=== PATIENT | male | born 1980 | race Caucasian/White ===

== ENCOUNTER 2017-09-27 01:14 | Observation (INO) | payer OTHER ==
[~2017-09-27] VITALS: Ht 175.3 cm; Wt 108.0 kg
[2017-09-27] VITALS (10 sets, daily range): BP systolic 116–171; BP diastolic 68–100; PULSE 60–104; RESP 16–20; TEMP 96.9–98.6; O2SAT 94–97
[~2017-09-27 01:14] MED LIST: OMEP20CA5 PO; Z.0.NO CURRENT MEDS
[2017-09-27] MEDS ORDERED: SODIUM CHLOR 0.9% 1000 ML INJ 1,000 ML IV SCH (01:40)
[2017-09-27] MEDS ORDERED: SODIUM CHLORIDE 0.9% FLUSH 10 ML FLUSH IV FLUSH PRN ×2 (01:45→03:30)
--- NOTE | 2017-09-27 01:49 | PD ---
HPI Chief Complaint: Cardiac Complaint Time Seen by Provider: 01:39 Travel History International Travel<30 days: No Contact w/Intl Traveler<30days: No Traveled to known affect area: No History of Present Illness HPI 37-year-old male arrives to the ER by private vehicle. He felt a sudden onset of a racing heart with palpitations while he was watching TV about an hour prior to ER arrival. The patient sit up and called EMS. He took 2 Tylenol. He walked around and his symptoms resolved. He called EMS and was driven here by family members. He describes minimal lightheadedness en route. A similar episode occurred last week and was evaluated at a hospital in [place]. The workup is essentially unremarkable. The patient is on the records here. Today was fairly inactive day for the patient. The family history coronary artery disease. The patient has a past medical history he is aware. He denies drugs alcohol tobacco. His caffeine intake. 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.) Social History Alcohol Use: No Tobacco Use: No Substance Use: No Allergies-Medications (Allergen,Severity, Reaction): Coded Allergies: No Known Allergies (Verified Adverse Reaction, Unknown, 09/27/17) Reported Meds & Prescriptions Reported Meds & Active Scripts Active Prilosec (Omeprazole) 20 Mg Capcr 20 Mg PO HS Reported No Current Meds (Miscellaneous Medication) Misc Review of Systems Except as stated in HPI: all other systems reviewed are Neg General / Constitutional: No: Fever Physical Exam Narrative GENERAL: 37-year-old male pleasant well-nourished well-developed no acute distress Vital Signs Date Time Temp Pulse Resp B/P (MAP) Pulse Ox O2 Delivery O2 Flow Rate FiO2 09/27/17 01:43 18 97 Room Air 09/27/17 01:42 16 97 Room Air 09/27/17 01:22 98.6 104 18 171/100 (123) 97 SKIN: Warm and dry. HEAD: Atraumatic. Normocephalic. EYES: Pupils equal and round. No scleral icterus. No injection or drainage. ENT: No nasal bleeding or discharge. Mucous membranes pink and moist. NECK: Trachea midline. No JVD. CARDIOVASCULAR: Tachycardia. Regular rhythm. RESPIRATORY: No accessory muscle use. Clear to auscultation. Breath sounds equal bilaterally. GASTROINTESTINAL: Abdomen soft, non-tender, nondistended. Hepatic and splenic margins not palpable. MUSCULOSKELETAL: Extremities without clubbing, cyanosis, or edema. No obvious deformities. NEUROLOGICAL: Awake and alert. No obvious cranial nerve deficits. Motor grossly within normal limits. Five out of 5 muscle strength in the arms and legs. Normal speech. PSYCHIATRIC: Appropriate mood and affect; insight and judgment normal. Data Data Last Documented VS Vital Signs Date Time Temp Pulse Resp B/P (MAP) Pulse Ox O2 Delivery O2 Flow Rate FiO2 09/27/17 01:43 18 97 Room Air 09/27/17 01:22 98.6 104 171/100 (123) Orders Orders Electrocardiogram (09/27/17 01:40) Complete Blood Count With Diff (09/27/17 01:40) Comprehensive Metabolic Panel (09/27/17 01:40) Creatine Kinase (Cpk) (09/27/17 01:40) Troponin I (09/27/17 01:40) Thyroid Stimulating Hormone (09/27/17 01:40) Chest, Single Ap (09/27/17 01:40) Blood Glucose (09/27/17 01:40) Ecg Monitoring (09/27/17 01:40) Iv Access Insert/Monitor (09/27/17 01:40) Oximetry (09/27/17 01:40) Sodium Chloride 0.9% Flush (Ns Flush) (09/27/17 01:45) Sodium Chlor 0.9% 1000 Ml Inj (Ns 1000 M (09/27/17 01:40) Drug Screen, Random Urine (09/27/17 01:40) Alcohol (Ethanol) (09/27/17 01:40) D-Dimer (09/27/17 01:46) Admit Order (Ed Use Only) (09/27/17 ) Beer Runner / Telemetry [id number] (09/27/17 02:54) Vital Signs (Adult) Q4H (09/27/17 02:54) Diet Npo (09/27/17 Breakfast) Activity Bed Rest (09/27/17 02:54) Notify Dr: Other (09/27/17 02:54) Labs Laboratory Tests Test 09/27/17 01:50 09/27/17 02:15 White Blood Count 6.1 TH/MM3 Red Blood Count 5.25 MIL/MM3 Hemoglobin 15.5 GM/DL Hematocrit 47.0 % Mean Corpuscular Volume 89.5 FL Mean Corpuscular Hemoglobin 29.5 PG Mean Corpuscular Hemoglobin Concent 33.0 % Red Cell Distribution Width 12.4 % Platelet Count 252 TH/MM3 Mean Platelet Volume 8.5 FL Neutrophils (%) (Auto) 42.2 % Lymphocytes (%) (Auto) 43.0 % Monocytes (%) (Auto) 7.5 % Eosinophils (%) (Auto) 5.0 % Basophils (%) (Auto) 2.3 % Neutrophils # (Auto) 2.6 TH/MM3 Lymphocytes # (Auto) 2.6 TH/MM3 Monocytes # (Auto) 0.5 TH/MM3 Eosinophils # (Auto) 0.3 TH/MM3 Basophils # (Auto) 0.1 TH/MM3 CBC Comment DIFF FINAL Differential Comment D-Dimer Quantitative (PE/DVT) 0.43 MG/L FEU Blood Urea Nitrogen 15 MG/DL Creatinine 1.20 MG/DL Random Glucose 137 MG/DL Total Protein 7.6 GM/DL Albumin 4.1 GM/DL Calcium Level 8.6 MG/DL Alkaline Phosphatase 75 U/L Aspartate Amino Transf (AST/SGOT) 18 U/L Alanine Aminotransferase (ALT/SGPT) 30 U/L Total Bilirubin 0.3 MG/DL Sodium Level 140 MEQ/L Potassium Level 3.4 MEQ/L Chloride Level 104 MEQ/L Carbon Dioxide Level 27.0 MEQ/L Anion Gap 9 MEQ/L Estimat Glomerular Filtration Rate 69 ML/MIN Total Creatine Kinase 130 U/L Troponin I LESS THAN 0.02 NG/ML Thyroid Stimulating Hormone 3rd Gen 4.930 uIU/ML Ethyl Alcohol Level LESS THAN 3 MG/DL Urine Opiates Screen NEG Urine Barbiturates Screen NEG Urine Amphetamines Screen NEG Urine Benzodiazepines Screen NEG Urine Cocaine Screen NEG Urine Cannabinoids Screen NEG MDM Medical Decision Making Medical Screen Exam Complete: Yes Emergency Medical Condition: Yes Medical Record Reviewed: Yes Differential Diagnosis NSTEMI, unstable angina, coronary vasospasm, PE, PTX, aortic dissection, pericarditis, myocarditis, endocarditis, PNA, esophageal disease, aneurysm, musculoskeletal etiologies, anxiety, cocaine/sympathomimetic abuse Narrative Course CBC & BMP Diagram 09/27/17 01:50 Total Protein 7.6, Albumin 4.1, Calcium Level 8.6, Alkaline Phosphatase 75, Aspartate Amino Transf (AST/SGOT) 18, Alanine Aminotransferase (ALT/SGPT) 30, Total Bilirubin 0.3 Last Impressions Chest X-Ray 09/27/17 0140 Signed Impressions: Service Date/Time: Wednesday, September 27, 2017 01:42 - CONCLUSION: No acute cardiopulmonary disease demonstrated. Dmitri Adam MD EKG shows a sinus rhythm, rate 80, with a rate of no preexcitation or ischemic injury pattern noted Patient is a reasonable candidate for the low-risk chest pain center. d/w Dr Gilliland for [facility] Visits and the patient may have had SVT, among other possibilities, however acute coronary syndrome is not definitively excluded. Diagnosis Primary Impression: Chest pain Qualified Codes: R07.9 - Chest pain, unspecified Additional Impression: Palpitations Admitting Information Admitting Physician Requests: Observation Celestino Farrell MD Sep 27, 2017 01:49
--- NOTE | 2017-09-27 01:55 | RADRPT ---
EXAM DATE/TIME: 09/27/2017 01:42 [place] COMPARISON: No previous studies available for comparison. INDICATIONS : Chest pain with nausea. MEDICAL HISTORY : None. SURGICAL HISTORY : None. ENCOUNTER: Initial ACUITY: 1 day PAIN SCORE: 8/10 LOCATION: Bilateral upper chest FINDINGS: A single view of the chest demonstrates the lungs to be symmetrically aerated without evidence of mas s, infiltrate or effusion. The cardiomediastinal contours are unremarkable. Osseous structures are intact. CONCLUSION: No acute cardiopulmonary disease demonstrated. Dmitri Adam MD on September 27, 2017 at 1:53 Board Certified Radiologist. This report was verified electronically.
[2017-09-27 01:58] LABS: AUTOMATED NEUTROPHIL # 2.6 TH/MM3 (1.8-7.7); BASOPHIL # 0.1 TH/MM3 (0-0.2); BASOPHIL % 2.3 % (0.0-2.0); EOSINOPHIL # 0.3 TH/MM3 (0-0.4); HEMOGLOBIN 15.5 GM/DL (13.0-17.0); LYMPHOCYTE # 2.6 TH/MM3 (1.0-4.8); MEAN CELL VOLUME 89.5 FL (80.0-100.0); MEAN CORPUSCULAR HEMOGLOBIN 29.5 PG (27.0-34.0); MEAN PLATELET VOLUME 8.5 FL (7.0-11.0); MONO % 7.5 % (0.0-8.0); MONOCYTE # 0.5 TH/MM3 (0-0.9); NEUT % 42.2 % (16.0-70.0); PLATELET COUNT 252 TH/MM3 (150-450); RED BLOOD COUNT 5.25 MIL/MM3 (4.50-5.90); RED CELL DISTRIBUTION WIDTH 12.4 % (11.6-17.2); WHITE BLOOD COUNT 6.1 TH/MM3 (4.0-11.0)
[2017-09-27 02:17] LABS: CHLORIDE 104 MEQ/L (98-107); SODIUM (NA) 140 MEQ/L (136-145)
[2017-09-27 02:20] LABS: ALBUMIN 4.1 GM/DL (3.4-5.0); CALCIUM 8.6 MG/DL (8.5-10.1)
[2017-09-27 02:21] LABS: BLOOD UREA NITROGEN 15 MG/DL (7-18); GLUCOSE,RANDOM 137 MG/DL (74-106)
[2017-09-27 02:23] LABS: ALT (GPT) 30 U/L (12-78); AST (GOT) 18 U/L (15-37); GLOMERULAR FILTRATION RATE 69 ML/MIN (>89)
[2017-09-27 02:25] LABS: TOTAL BILIRUBIN ADULT 0.3 MG/DL (0.2-1.0); TOTAL PROTEIN 7.6 GM/DL (6.4-8.2)
[2017-09-27 02:26] LABS: ALKALINE PHOSPHATASE 75 U/L (45-117)
[2017-09-27 02:29] LABS: TROPONIN I LESS THAN 0.02 NG/ML (0.02-0.05)
[2017-09-27] MEDS ORDERED: ONDANSETRON HCL 4 MG/2 ML VIAL IV PUSH PRN (03:30)
[2017-09-27] MEDS ORDERED: ACETAMINOPHEN 500 MG CPLT PO PRN (03:30)
[2017-09-27] MEDS ORDERED: POTASSIUM CHLORIDE 10 MEQ CONTROLLED RELEASE TAB PO ONE (03:30)
[2017-09-27] MEDS ORDERED: ENALAPRILAT 1.25 MG/ML VIAL IV PUSH PRN (03:30)
[2017-09-27] MEDS ORDERED: METOPROLOL TARTRATE 25 MG TAB PO SCH (03:30)
[2017-09-27] MEDS ORDERED: MORPHINE SULFATE 4 MG/ML INJ IV PUSH PRN (03:45)
[2017-09-27] MEDS ORDERED: NITROGLYCERIN 0.4 MG SL 25 TABS/BTL SL PRN (03:45)
[2017-09-27] MEDS ORDERED: NITROGLYCERIN 2% OINT 1 GM PACKET TOP SCH (06:00)
[2017-09-27 06:38] LABS: TROPONIN I LESS THAN 0.02 NG/ML (0.02-0.05)
[2017-09-27] MEDS ORDERED: PNEUMOCOCCAL POLYVALENT INJ 25 MCG/0.5 ML SYR IM ONE (08:00)
[2017-09-27] MEDS ORDERED: ASPIRIN 325 MG TAB PO SCH (09:00)
[2017-09-27] MEDS ORDERED: SODIUM CHLORIDE 0.9% FLUSH 10 ML FLUSH IV FLUSH SCH (09:00)
[2017-09-27 09:57] LABS: TROPONIN I LESS THAN 0.02 NG/ML (0.02-0.05)
--- NOTE | 2017-09-27 10:14 | HHI.HP ---
[facility] Service [facility] Primary Care Physician Non-Staff Admission Diagnosis Chest Pain; Palpitations Diagnoses: (1) Palpitations Diagnosis: Principal (2) Chest pain Diagnosis: Principal Chief Complaint: Chest pain Palpitations Travel History International Travel<30 Days: No Contact w/Intl Traveler <30 Da: No Traveled to Known Affected Are: No History of Present Illness This is a 37-year-old male patient with a known medical history of hypertension who presented to the ED with complaints of palpitations and chest pain. Patient arrived via private vehicle after complaints of sudden right arm throbbing and numbness with associated palpitations and feelings like his " heart is racing" while at rest. He also states that he developed a left-sided chest pressure that radiated up his neck and left shoulder. Lasted a couple seconds and then went away on its own. Pain is rated a 4 out of 10 on pain scale at its worst. Patient 1000 milligrams of Tylenol with minimal relief of symptoms. Patient does admit to associated diaphoresis, nausea and lightheadedness. It should be noted that patient developed the symptoms a week ago while on vacation in [place], presented to the ED at that point and his blood pressure was significantly elevated with a systolic in the 180s. At that time workup was essentially unremarkable. Denies any family medical history of cardiovascular disease. Denies any tobacco use. Denies any history of CAD. Patient last saw PCP on Wednesday when at that point his blood pressure was normal. An appointment has been set up with cardiology for Wednesday with Dr. Pan for complaints of intermittent palpitations and chest pressure over the past week. Denies any recent illness including fever, chills, cough, headache, abdominal pain, nausea, vomiting, diarrhea dysuria. Review of Systems Constitutional: COMPLAINS OF: Diaphoretic episodes, Fatigue, DENIES: Fever, Chills Eyes: DENIES: Blurred vision, Diplopia Cardiovascular: COMPLAINS OF: Chest pain, Palpitations Gastrointestinal: COMPLAINS OF: Nausea, DENIES: Abdominal pain, Black stools, Bloody stools, Constipation, Diarrhea, Vomiting Musculoskeletal: DENIES: Joint pain Psychiatric: COMPLAINS OF: Anxiety Except as stated in HPI: all other systems reviewed are Neg Past Family Social History Past Medical History Hypertension Past Surgical History Bone tumor removal on chin Reported Medications Does not take any medications at home. Allergies: Coded Allergies: No Known Allergies (Verified Allergy, Unknown, 09/27/17) Active Ordered Medications Current Medications Medications (Trade) Dose Ordered Sig/Norris Route Start Time Stop Time Status Last Admin (NS Flush) 2 ml UNSCH PRN IV FLUSH 09/27/17 03:30 (NS Flush) 2 ml BID IV FLUSH 09/27/17 09:00 09/27/17 10:16 (Tylenol) 500 mg Q4H PRN PO 09/27/17 03:30 (Zofran Inj) 4 mg Q6H PRN IV PUSH 09/27/17 03:30 (Lopressor) 25 mg Q12H PO 09/27/17 03:30 (Aspirin) 325 mg DAILY PO 09/27/17 09:00 09/27/17 10:16 (Vasotec Inj) 1.25 mg Q6H PRN IV PUSH 09/27/17 03:30 (Nitrostat Sl) 0.4 mg Q5M PRN SL 09/27/17 03:45 (Morphine Inj) 2 mg Q3H PRN IV PUSH 09/27/17 03:45 Family History Denies any significant family medical history including heart attack, stroke. Social History Patient denies any tobacco use, alcohol or illicit drug use. Physical Exam Vital Signs Vital Signs Date Time Temp Pulse Resp B/P (MAP) Pulse Ox O2 Delivery O2 Flow Rate FiO2 09/27/17 07:50 96.9 65 20 116/68 (84) 95 09/27/17 03:52 77 09/27/17 03:35 09/27/17 03:35 98.2 75 16 142/87 (105) 95 09/27/17 03:21 83 144/77 (99) 09/27/17 01:43 18 97 Room Air 09/27/17 01:42 16 97 Room Air 09/27/17 01:22 98.6 104 18 171/100 (123) 97 Physical Exam GENERAL: Well-developed, well-nourished patient in NAD. SKIN: Warm and dry. No rash. HEAD: Normocephalic. Atraumatic. EYES: Pupils equal and round. No scleral icterus. No injection or drainage. ENT: No nasal bleeding or discharge. Mucous membranes pink and moist. NECK: Supple. Trachea midline. CARDIOVASCULAR: Regular rate and rhythm. S1, S2 noted. No murmur appreciated. No chest pain to palpation. RESPIRATORY: No accessory muscle use. Clear to auscultation. Breath sounds equal bilaterally. GASTROINTESTINAL: Abdomen soft, non-tender, nondistended. Normoactive bowel sounds x4. MUSCULOSKELETAL: No obvious deformities. Extremities without clubbing, cyanosis , or edema. NEUROLOGICAL: Awake and alert. No obvious cranial nerve deficits. Motor grossly within normal limits. 5/5 muscle strength in bilateral upper and lower extremities. Normal speech. PSYCHIATRIC: Appropriate mood and affect; insight and judgment normal. Laboratory Laboratory Tests Test 09/27/17 01:50 09/27/17 02:15 09/27/17 05:35 09/27/17 08:45 White Blood Count 6.1 Red Blood Count 5.25 Hemoglobin 15.5 Hematocrit 47.0 Mean Corpuscular Volume 89.5 Mean Corpuscular Hemoglobin 29.5 Mean Corpuscular Hemoglobin Concent 33.0 Red Cell Distribution Width 12.4 Platelet Count 252 Mean Platelet Volume 8.5 Neutrophils (%) (Auto) 42.2 Lymphocytes (%) (Auto) 43.0 Monocytes (%) (Auto) 7.5 Eosinophils (%) (Auto) 5.0 Basophils (%) (Auto) 2.3 Neutrophils # (Auto) 2.6 Lymphocytes # (Auto) 2.6 Monocytes # (Auto) 0.5 Eosinophils # (Auto) 0.3 Basophils # (Auto) 0.1 CBC Comment DIFF FINAL Differential Comment D-Dimer Quantitative (PE/DVT) 0.43 Blood Urea Nitrogen 15 Creatinine 1.20 Random Glucose 137 Total Protein 7.6 Albumin 4.1 Calcium Level 8.6 Alkaline Phosphatase 75 Aspartate Amino Transf (AST/SGOT) 18 Alanine Aminotransferase (ALT/SGPT) 30 Total Bilirubin 0.3 Sodium Level 140 Potassium Level 3.4 Chloride Level 104 Carbon Dioxide Level 27.0 Anion Gap 9 Estimat Glomerular Filtration Rate 69 Total Creatine Kinase 130 109 101 Troponin I LESS THAN 0.02 LESS THAN 0.02 LESS THAN 0.02 Thyroid Stimulating Hormone 3rd Gen 4.930 Ethyl Alcohol Level LESS THAN 3 Urine Opiates Screen NEG Urine Barbiturates Screen NEG Urine Amphetamines Screen NEG Urine Benzodiazepines Screen NEG Urine Cocaine Screen NEG Urine Cannabinoids Screen NEG Creatine Kinase MB 0.6 LESS THAN 0.5 Result Diagram: 09/27/17 0150 09/27/17 015 Imaging Last Impressions Chest X-Ray 09/27/17 014 Signed Impressions: Service Date/Time: Wednesday, September 27, 2017 01:42 - CONCLUSION: No acute cardiopulmonary disease demonstrated. Dmitri Adam MD Septic Shock Reassessment Septic shock perfusion: reassessment completed Caprini VTE Risk Assessment Caprini VTE Risk Assessment: No/Low Risk (score <= 1) Caprini Risk Assessment Model Point Value = 1 Point Value = 2 Point Value = 3 Point Value = 5 Age 41-60 Minor surgery BMI > 25 kg/m2 Swollen legs Varicose veins or History of unexplained or recurrent spontaneous Oral contraceptives or hormone replacement Sepsis (< 1 month) Serious lung disease, including pneumonia (< 1 month) Abnormal pulmonary function Acute myocardial infarction Congestive heart failure (< 1 month) History of inflammatory bowel disease Medical patient at bed rest Age 61-74 Arthroscopic surgery Major open surgery (> 45 min) Laparoscopic surgery (> 45 min) Malignancy Confined to bed (> 72 hours) Immobilizing plaster cast Central venous access Age >= 75 History of VTE Family history of VTE Factor V Leiden Prothrombin [id number] Lupus anticoagulant Anticardiolipin antibodies Elevated serum homocysteine Heparin-induced thrombocytopenia Other congenital or acquired thrombophilia Stroke (< 1 month) Elective arthroplasty Hip, pelvis, or leg fracture Acute spinal cord injury (< 1 month) Prophylaxis Regimen Total Risk Factor Score Risk Level Prophylaxis Regimen 0-1 Low Early ambulation 2 Moderate Order ONE of the following: *Sequential Compression Device (SCD) *Heparin 5000 units SQ BID 3-4 Higher Order ONE of the following medications: *Heparin 5000 units SQ TID *Enoxaparin/Lovenox 40 mg SQ daily (WT < 150 kg, CrCl > 30 mL/min) *Enoxaparin/Lovenox 30 mg SQ daily (WT < 150 kg, CrCl > 10-29 mL/min) *Enoxaparin/Lovenox 30 mg SQ BID (WT < 150 kg, CrCl > 30 mL/min) AND/OR *Sequential Compression Device (SCD) 5 or more Highest Order ONE of the following medications: *Heparin 5000 units SQ TID (Preferred with Epidurals) *Enoxaparin/Lovenox 40 mg SQ daily (WT < 150 kg, CrCl > 30 mL/min) *Enoxaparin/Lovenox 30 mg SQ daily (WT < 150 kg, CrCl > 10-29 mL/min) *Enoxaparin/Lovenox 30 mg SQ BID (WT < 150 kg, CrCl > 30 mL/min) AND *Sequential Compression Device (SCD) Assessment and Plan Problem List: (1) Palpitations ICD Code: R00.2 - Palpitations Status: Acute (2) Chest pain ICD Code: R07.9 - Chest pain, unspecified Status: Acute Assessment and Plan This is a 37-year-old male patient with a known medical history of hypertension who presented to the ED with complaints of palpitations and chest pain. Patient arrived via private vehicle after complaints of sudden right arm throbbing and numbness with associated palpitations and feelings like his " heart is racing" while at rest. Chest pain rule out ACS versus musculoskeletal cause versus possible arrhythmia - Patient has been admitted to the chest pain center for observation. Serial EKGs and serial troponins have been ordered for ruling out ACS purposes. Troponin trend flat. - EKG reviewed showing normal sinus rhythm with controlled heart rate no ST changes to indicate ischemia. - Patient was given nitroglycerin in ED. Placed on daily aspirin. Was given 1 L NS bolus. Chest pain has resolved. - Pain control with IV narcotics. Supplemental O2 as needed, patient is comfortable on room air, oxygen saturations within normal limits. - Chest x-ray reviewed showing no acute cardiopulmonary disease. CBC reviewed essentially unremarkable. D-dimer is within normal limits. - Drug toxicology is negative. BMP essentially unremarkable. Mildly elevated random glucose. Hemoglobin A1c and lipid panel added to labs. Continue to follow. - Patient placed on continuous cardiac telemetry, monitor for any arrhythmias. - TSH mildly elevated, T3-T4 within normal limits. Follow-up outpatient with PCP. - Patient underwent cardiac treadmill stress test. Images reviewed by Dr. Silva, universal branch consultant credit control administrator for [facility]. Treadmill test negative. - Call placed to Dr. Pan, patient has a scheduled appointment with him on Wednesday 10/04 for follow up with palpitations and chest pain. Awaiting further recs regarding possible consult versus outpatient holter. - Supportive care. Hypertension: Patient does not take any medications at home for hypertension. BP trends are labile. Will add Lisinopril for now. Monitor BP trends. Hypokalemia, mild: K3.4. Replacement ordered. DVT prophylaxis: SCDs. Discussed Condition With Spoke to Dr. Pan regarding patient status and plan. OK to DC home with f/u scheduled appointment with him on Wednesday. He will order a holter monitor in office. Patients chest pain and discomfort has resolved. No events on monitor recorded. Vitals are stable. Patient advised that if symptoms continue or worsen to return to the ED for further treatment and evaluation. Patient is stable at this time and agreeable to the plan. Problem Qualifiers (1) Chest pain: Qualified Codes: R07.9 - Chest pain, unspecified Patricia Guillen Sep 27, 2017 10:14
[2017-09-27 10:40] LABS: FREE T3 3.48 PG/ML (2.18-3.98); FREE T4 1.08 NG/DL (0.76-1.46)
--- NOTE | 2017-09-27 10:41 | EKG ---
Date Performed: 09/27/2017 Time Performed: 02:04:56 PTAGE: 37 years EKG: Sinus rhythm NONSPECIFIC T-WAVE ABNORMALITY BORDERLINE ECG NO PREVIOUS TRACING DOCTOR: Eliseo Silva Interpretating Date/Time 09/27/2017 10:38:48
--- NOTE | 2017-09-27 10:42 | EKG ---
Date Performed: 09/27/2017 Time Performed: 04:54:37 PTAGE: 37 years EKG: Sinus rhythm NORMAL ECG PREVIOUS TRACING : 09/27/2017 02.04 Since previous tracing, no significant change noted DOCTOR: Eliseo Silva Interpretating Date/Time 09/27/2017 10:39:47
[2017-09-27] MEDS ORDERED: ASPI-516 CHEW (12:02)
--- NOTE | 2017-09-27 12:03 | HHI.DCPOC ---
Discharge Care Plan Diagnosis: (1) Palpitations (2) Chest pain Goals to Promote Your Health * To prevent worsening of your condition and complications * To maintain your health at the optimal level Directions to Meet Your Goals Take your medications as prescribed Follow your dietary instruction Follow activity as directed Keep your appointments as scheduled Take your immunizations and boosters as scheduled If your symptoms worsen call your PCP, if no PCP go to Urgent Care Center or Emergency Room Smoking is Dangerous to Your Health. Avoid second hand smoke Call the 24-hour hour crisis hotline for domestic abuse at Patricia Guillen Sep 27, 2017 12:03
[2017-09-27 14:44] LABS: CHOLESTEROL 193 MG/DL (120-200); TRIGLYCERIDES 163 MG/DL (42-150)
[2017-09-27 14:46] LABS: CHOLESTEROL/ HDL RATIO 4.81 RATIO; HDL CHOLESTEROL 40.1 MG/DL (40.0-60.0); LDL CHOLESTEROL 120 MG/DL (0-99)
[2017-09-27] MEDS ORDERED: LISI-519 PO (15:08)
[2017-09-27 17:55] LABS: HEMOGLOBIN A1C 5.1 % (4.3-6.0)
[2017-09-28] MEDS ORDERED: LISINOPRIL 5 MG TAB PO SCH (09:00)
--- NOTE | 2017-09-28 17:48 | EKG ---
Date Performed: 09/27/2017 Time Performed: 09:00:02 PTAGE: 37 years EKG: Sinus rhythm NONSPECIFIC ST & T-WAVE ABNORMALITY BORDERLINE ECG Since PREVIOUS TRACING , no significant change noted PREVIOUS TRACIN09/27/2017 04.54 DOCTOR: Anna Watkins Interpretating Date/Time 09/28/2017 17:47:11
--- NOTE | 2017-09-28 17:50 | TR ---
Date Performed: 09/27/2017 Time Performed: 10:54:37 DOCTOR: Anna Waktins DRUG LIST: CLINICAL HISTORY: CHEST PAIN REASON FOR TEST: Chest pain REASON FOR ENDING: OBSERVATION: CONCLUSION: Bassem protocol performed and completed, test stopped secondary to reaching target he art rate. No ST changes. Good exercise tolerance. No reproducible chest pain. Good BP response. Recov columba quick and unremarkable. Maximum AT=834 Target HR Rbedexth=020.0% Maximum YZ=129/90 Total Exercise Time=6:30 COMMENTS: No definitive ischemia, non-diagnostic ST changes
== END 2017-09-27 17:00 | disposition home or self-care (01) ==
LOC: PHED 01:14 → PHEDA 02:56 → PH3B 03:31
PROVIDERS: ADMIT Hospitalist; ATTEND Hospitalist
DX: R00.2 Palpitations (principal); R07.89 Other chest pain; R00.0 Tachycardia, unspecified; I10 Essential (primary) hypertension; R20.0 Anesthesia of skin; E87.6 Hypokalemia; R61 Generalized hyperhidrosis; R42 Dizziness and giddiness; R11.0 Nausea; K21.9 Gastro-esophageal reflux disease without esophagitis; F41.9 Anxiety disorder, unspecified; Z82.49 Family history of ischemic heart disease and other diseases of the circulatory system; Z23 Encounter for immunization
CPT/HCPCS: 71045; 80053; 80061; 80307; 82550; 82552; 83036; 83735; 84439; 84443; 84481; 84484; 85025; 85379; 90471; 90732; 93005; 93017; 96360; 99285; G0378; J7030; G0009